=== PATIENT | male | born 1995 | race Caucasian/White ===

== ENCOUNTER 2022-09-23 03:03 | Emergency (ER) | payer SELFPAY ==
[2022-09-23 03:07] VITALS: BP 129/80; PULSE 98; RESP 20; TEMP 37.1; O2SAT 97
--- NOTE | 2022-09-23 03:23 | PC.NURSE ---
patient states that since this er is not able to provide him with boots and back brace he no longer wants to be seen
== END 2022-09-23 03:23 | disposition left against medical advice (07) ==
LOC: ANHED 03:30
DX: M79.672 Pain in left foot (principal); M79.671 Pain in right foot
CPT/HCPCS: 99199